=== PATIENT | female | born 1970 | race Asian ===

== ENCOUNTER → 2019-12-03 | Day surgery (SDC) | payer OTHER ==
[~2019-12-03] MED LIST: FENTANYL CITRATE/PF 100MCG/2 ML INJ ONE; LIDOCAINE HCL 2% LOCAL INJ 5 ML SDV VIAL INJ ONE; MIDAZOLAM HCL 2 MG/2 ML VIAL ONE; PROPOFOL IV EMULSION 10 MG/ML 20 ML VIAL ONE
--- OUTSIDE RECORDS SUMMARY | 2019-12-03 09:00 | XMS REPORT ---
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
--- OUTSIDE RECORDS SUMMARY | 2019-12-03 09:00 | XMS REPORT ---
Author Author Juan Francisco Zamarripa Organization [employer] Address Unknown Phone Unavailable Care Team Providers Care Superintendent [employer] Name Role Phone Juan Francisco Zamarripa CP [...]
--- OUTSIDE RECORDS SUMMARY | 2019-12-03 09:00 | XMS REPORT ---
Author Author Juan Francisco Zamarripa Organization [employer] Address Unknown Phone Unavailable Care Team Providers Care Online Services Manager Name Role Phone Juan Francisco Zamarripa CP Unavailable Allergies, Adverse Reactions, Alerts Substance Reaction Event Type N.K.D.A. Info Not Available Non Drug Allergy Problems Problem Type Condition Code Onset Dates Condition Status Problem Stricture and stenosis of cervix 622.4 Aug 05, 2012 Active Problem Unspecified breast screening V76.10 Aug 05, 2012 Active Problem Mild dysplasia of cervix 622.11 Jul 31, 2011 Active Assessment Encounter for gynecological examination without abnormal finding Z01.419 Active Assessment Breast cancer screening Z12.39 Active Problem Dizziness R42 Active Problem Other screening breast examination V76.19 Active Problem Borderline hyperlipidemia E78.5 Active Problem Dizziness and giddiness 780.4 Active Problem Routine gynecological examination V72.31 Sep 18, 2013 Active Problem vitamin D deficiency (<20) 268.9 Active Problem Idiopathic peripheral autonomic neuropathy, unspecified 337.00 Active Medications Medication Code System Code Instructions Start Date End Date Status Dosage OTC or Herbal Products NOT TAKING NDC 0 Active not defined Results No Known Results Summary Purpose [employer] Submission
--- OUTSIDE RECORDS SUMMARY | 2019-12-03 09:00 | XMS REPORT ---
Author [facility] Address Unknown Phone Unavailable Care Team Providers Care Nuclear Medicine Officer Name Role Phone Unavailable Unavailable Payers Payer Name Policy Type Policy Number Effective Date Expiration Date Problems This patient has no known problems. Allergies, Adverse Reactions, Alerts This patient has no known allergies or adverse reactions. Medications This patient has no known medications. Results Test Description Test Time Test Comments Text Results Atomic Results Result Comments - HEPA IMAG INCL GB W PHA 2019-11-18 11:24:00 FAX: Sergio Leon MD [phone] [place]: [address] St: REG Name: FRANCISCO MONTALVO [facility] : 1970 Age/S: 49/F [address] [facility] Unit #: [id number] Loc: [place] [address] Phys: Sergio Luu MD Acct: [id number] Dis Date: Status: REG CLI PHONE #: [phone] Exam Date: 11/18/2019 1125 FAX #: [phone] Reason: GALLSTONES EXAMS: CPT CODE: [id number] HEPA IMAG INCL GB W PHA [id number] HISTORY: GALLSTONES EXAM: NUCLEAR MEDICINE HEPATOBILIARY SCAN. TECHNIQUE: After IV injection of 4.8 mCi Tc 99m Choletec, sequential planar images were obtained over the upper abdomen out to 120 minutes. FINDINGS: Homogeneous distribution of radiopharmaceutical in the liver. No accumulation of radiopharmaceutical in the gallbladder by 120 minutes. Normal accumulation of radiopharmaceutical in small bowel by 15 minutes. IMPRESSION: Nonvisualization of the gallbladder. This may either be because the gallbladder is surgically absent or may be due to obstruction of the cystic duct as seen with cholecystitis. Location: [facility] at 1124 Reported and signed by: Cristi Rosenbaum MD CC: Sergio Luu MD Technologist: Maikel MooreMT Trnscrd Date/Time/By: 11/18/2019 (1124) : By: [email or web address] Orig Print D/T: S: 11/18/2019 (1672) PAGE 1 Signed Report
--- OUTSIDE RECORDS SUMMARY | 2019-12-03 09:00 | XMS REPORT ---
Author Author Juan Francisco Zamarripa Organization [employer] Address Unknown Phone Unavailable Care Team Providers Care Cab Driver Name Role Phone Juan Francisco Zamarripa CP [...]
[2019-12-03 12:30] VITALS: BP 112/62
== END | disposition home or self-care (01) ==
LOC: OR 08:50
PROVIDERS: ATTEND Internal Medicine Gastroenterology
DX: K59.00 Constipation, unspecified (principal); K29.70 Gastritis, unspecified, without bleeding; K44.9 Diaphragmatic hernia without obstruction or gangrene; K21.0 Gastro-esophageal reflux disease with esophagitis; K31.89 Other diseases of stomach and duodenum; K64.8 Other hemorrhoids
CPT/HCPCS: 43239; 45378; 81025; J2001; J2250; J3010